=== PATIENT | female | born 1965 | race African-American/Black ===

== ENCOUNTER → 2017-02-25 | Outpatient (CLI) | payer OTHER ==
[2017-02-28 21:07] LABS: AMITRIPTYLINE SERUM 109 ng/mL (Not Estab.); NORTRIPTYLINE SERUM 2 175 ng/mL (Not Estab.)
[2017-03-01 07:10] LABS: AMITRIPTYLINE + NORTRIP TOTAL 284 ng/mL (80-200)
== END ==
LOC: LAB 11:26
PROVIDERS: ATTEND Specialist
DX: R51 Headache (principal); Z51.81 Encounter for therapeutic drug level monitoring; Z79.899 Other long term (current) drug therapy
CPT/HCPCS: 36415; G0480; 80335

== ENCOUNTER → 2017-03-04 | Outpatient (CLI) | payer OTHER ==
[2017-03-04 10:01] LABS: HEMOGLOBIN 10.8 g/dL (12.0-15.5); HGB HCT DIFFERENCE -0.6; MEAN CORPUSCULAR HEMOGLOBIN 28.2 pg (27.0-33.4); MEAN CORPUSCULAR HGB CONC 32.7 g/dL (32.0-36.0); MEAN CORPUSCULAR VOLUME 86 fl (80-97); RED BLOOD COUNT 3.82 10^6/uL (3.72-5.28); WHITE BLOOD COUNT 7.4 10^3/uL (4.0-10.5)
[2017-03-04 10:20] LABS: ALANINE AMINOTRANSFERASE 30 U/L (9-52); ALBUMIN 4.4 g/dL (3.5-5.0); ALKALINE PHOSPHATASE 110 U/L (38-126); ANION GAP 9 (5-19); ASPARTATE AMINO TRANSFERASE 24 U/L (14-36); BILIRUBIN,DIRECT 0.4 mg/dL (0.0-0.4); BILIRUBIN,TOTAL 0.4 mg/dL (0.2-1.3); BLOOD UREA NITROGEN 24 mg/dL (7-20); CALCIUM 10.2 mg/dL (8.4-10.2); CARBON DIOXIDE 24 mmol/L (22-30); CHLORIDE 103 mmol/L (98-107); CREATININE RESULT 1.46 mg/dL (0.52-1.25); GLUCOSE 69 mg/dL (75-110); POTASSIUM 4.6 mmol/L (3.6-5.0); SODIUM 135.7 mmol/L (137-145); TOTAL PROTEIN 7.4 g/dL (6.3-8.2)
== END ==
LOC: LAB 09:42
PROVIDERS: ATTEND Internal Medicine Gastroenterology
DX: R11.2 Nausea with vomiting, unspecified (principal); K44.9 Diaphragmatic hernia without obstruction or gangrene
CPT/HCPCS: 36415; 80048; 80076; 85027

== ENCOUNTER → 2017-03-15 | Outpatient (CLI) | payer OTHER ==
--- NOTE | 2017-03-15 15:47 | RADIOLOGY REPORT (SQ) ---
EXAM DESCRIPTION: NM GASTRIC EMPTYING STUDY COMPLETED DATE/TIME: 03/15/2017 2:07 pm REASON FOR STUDY: N/V (R11.2), TYPE II DIABETES (E11.9) R11.2 NAUSEA WITH VOMITING, UNSPECIFIED COMPARISON: None. RADIONUCLIDE AND DOSE: 2 millicuries Tc-99m Sulfur Colloid. The route of agent administration: Oral. TECHNIQUE: Serial images acquired to 240 minutes with each image recorded over a 2-minute time frame . Image intensity values plotted with respect to time with linear regression algorithm. LIMITATIONS: None. FINDINGS: CALCULATED VALUE: 88.2 %. NORMAL VALUE: Greater than 90 % emptying at 240 minutes. OTHER: No other significant finding. IMPRESSION: Slightly delayed gastric emptying with 88.2% emptying where 90% is considered normal. TECHNICAL DOCUMENTATION: JOB ID: [id number] [employer]- All Rights Reserved
== END ==
LOC: RAD 07:38
PROVIDERS: ATTEND Internal Medicine Gastroenterology
DX: R11.2 Nausea with vomiting, unspecified (principal); E11.9 Type 2 diabetes mellitus without complications
CPT/HCPCS: 78264; A9541

== ENCOUNTER 2017-04-05 12:47 | Observation (INO) | payer OTHER ==
[2017-04-05 14:21] LABS: APPEARANCE,URINE SLIGHTLY-CLOUDY; BILIRUBIN,URINE NEGATIVE (NEGATIVE); GLUCOSE, URINE NEGATIVE (NEGATIVE); KETONES,URINE 20 mg/dL (NEGATIVE); LEUKOCYTE ESTERASE,URINE LARGE (NEGATIVE); NITRITE,URINE NEGATIVE (NEGATIVE); PROTEIN,URINE NEGATIVE (NEGATIVE); URINE SPECIFIC GRAVITY 1.018; UROBILINOGEN,URINE NEGATIVE mg/dL (<2.0)
[2017-04-05] MEDS ORDERED: DEXTROSE 50%-WATER SYRINGE 25 GM/50 ML DOSE IV PRN (14:23)
[2017-04-05] MEDS ORDERED: DEXTROSE 40% GEL 15 GM TUBE X 2 PO PRN (14:23)
[2017-04-05] MEDS ORDERED: INSULIN LISPRO 100 UNIT/ML 3 ML VIAL SUBCUT PRN (14:23)
[2017-04-05] MEDS ORDERED: LORAZEPAM INJ 2 MG/1 ML VIAL IV PRN (14:23)
[2017-04-05] MEDS ORDERED: DEXTROSE 50%-WATER SYRINGE 12.5 GM/25 ML DOSE IV PRN (14:23)
[2017-04-05] MEDS ORDERED: DEXTROSE 40% GEL 15 GM TUBE PO PRN (14:23)
[2017-04-05] MEDS ORDERED: GLUCAGON,HUMAN RECOMB 1 MG INJ IM PRN (14:23)
--- NOTE | 2017-04-05 15:00 | RADIOLOGY REPORT (SQ) ---
EXAM DESCRIPTION: CHEST SINGLE VIEW COMPLETED DATE/TIME: 04/05/2017 2:23 pm REASON FOR STUDY: Paralysis COMPARISON: 01/16/2015. EXAM PARAMETERS: NUMBER OF VIEWS: One view. TECHNIQUE: Single frontal radiographic view of the chest acquired. RADIATION DOSE: NA LIMITATIONS: None. FINDINGS: LUNGS AND PLEURA: No opacities, masses or pneumothorax. No pleural effusion. MEDIASTINUM AND HILAR STRUCTURES: No masses. Contour normal. HEART AND VASCULAR STRUCTURES: Heart normal in size. Normal vasculature. BONES: No acute findings. HARDWARE: None in the chest. OTHER: No other significant finding. IMPRESSION: NO ACUTE RADIOGRAPHIC FINDING IN THE CHEST. TECHNICAL DOCUMENTATION: JOB ID: [id number]
[2017-04-05] MEDS ORDERED: LORAZEPAM INJ 2 MG/1 ML VIAL ONE (15:21)
--- NOTE | 2017-04-05 16:45 | RADIOLOGY REPORT (SQ) ---
EXAM DESCRIPTION: MRI HEAD WITHOUT COMPLETED DATE/TIME: 04/05/2017 4:36 pm REASON FOR STUDY: Paralysis COMPARISON: 01/16/2015. TECHNIQUE: Multiplanar imaging includes non-contrasted T1, T2, FLAIR, and diffusion with ADC map seq uences. Images stored on PACS. LIMITATIONS: None. FINDINGS: ANATOMY: No anomalies. Normal vascular flow voids. Pituitary fossa normal. CSF SPACES: Normal in size and contour. No hemorrhage. CEREBRUM: Sulci and gyri normal in size and contour. Normal white matter signal on FLAIR imaging. No evidence of hemorrhage, mass, or extraaxial fluid collection. POSTERIOR FOSSA: No signal alteration. No hemorrhage. No edema, masses or mass effect. Internal keny tory canals, cerebello-pontine angles, mastoids normal. DIFFUSION IMAGING: Negative for acute or sub-acute infarction. ORBITS: No masses. Globes normal. PARANASAL SINUSES: Mucous membrane thickening in the in the left ethmoid sinus. OTHER: No other significant finding. IMPRESSION: NORMAL MRI OF THE BRAIN WITHOUT INTRAVENOUS GADOLINIUM CONTRAST. EVIDENCE OF ACUTE STROKE: NO. TECHNICAL DOCUMENTATION: JOB ID: [id number] [employer]- All Rights Reserved
--- NOTE | 2017-04-05 16:49 | RADIOLOGY REPORT (SQ) ---
EXAM DESCRIPTION: MRI LUMBAR SPINE WITHOUT COMPLETED DATE/TIME: 04/05/2017 4:36 pm REASON FOR STUDY: Paralysis COMPARISON: None. TECHNIQUE: Sagittal and Axial imaging includes T1, T2, STIR and gradient echo sequences. Coronal T2/ HASTE imaging. LIMITATIONS: None. FINDINGS: VISUALIZED UPPER ABDOMEN: Limited evaluation. No acute or suspicious findings suggested. SEGMENTATION: No transitional anatomy. The lowest well-developed disc space is labeled L5-S1. ALIGNMENT: Anatomic. VERTEBRAE: Intact. BONE MARROW: Normal. No marrow replacement or reactive changes. DISC SIGNAL: Mild decreased height and signal. POSTERIOR ELEMENTS: Generally intact. No pars defect evident. HARDWARE: None in the spine. CORD AND CONUS: Normal in size and signal intensity. Conus at the appropriate level. SOFT TISSUES: No aortic aneurysm seen. No bulky retroperitoneal adenopathy or mass. No paraspinal mas s or fluid. L1-L2: No significant spinal stenosis or exit foraminal stenosis. L2-L3: No significant spinal stenosis or exit foraminal stenosis. L3-L4: Minimal diffuse posterior disc bulge. Mild facet arthropathy. No significant spinal stenosis or exit foraminal stenosis. L4-L5: Mild diffuse posterior disc bulge. Mild -moderate facet arthropathy. No significant spinal s tenosis or exit foraminal stenosis. L5-S1: Mild diffuse posterior annular bulge, asymmetric to the left. Borderline left lateral recess stenosis. No significant spinal stenosis or exit foraminal stenosis. LOWER THORACIC: Incompletely imaged. No stenosis seen. SACRUM: Visualized upper sacrum intact. OTHER: No other significant findings. IMPRESSION: MILD CHRONIC DEGENERATIVE CHANGES DESCRIBED. BORDERLINE LEFT LATERAL RECESS STENOSIS AT L5-S1. NO HIGH-GRADE STENOSIS OR IMPINGEMENT. TECHNICAL DOCUMENTATION: JOB ID: [id number] [employer]- All Rights Reserved
[2017-04-05 17:36] LABS: HEMATOCRIT 31.1 % (36.0-47.0); HEMOGLOBIN 10.7 g/dL (12.0-15.5); MEAN CORPUSCULAR HEMOGLOBIN 28.7 pg (27.0-33.4); MEAN CORPUSCULAR HGB CONC 34.5 g/dL (32.0-36.0); MEAN CORPUSCULAR VOLUME 83 fl (80-97); RED BLOOD COUNT 3.74 10^6/uL (3.72-5.28); RED CELL DISTRIBUTION WIDTH 13.5 % (11.5-14.0); WHITE BLOOD COUNT 8.6 10^3/uL (4.0-10.5)
[2017-04-05 17:50] LABS: ALANINE AMINOTRANSFERASE 34 U/L (9-52); ALBUMIN 4.1 g/dL (3.5-5.0); ALKALINE PHOSPHATASE 134 U/L (38-126); ANION GAP 13 (5-19); ASPARTATE AMINO TRANSFERASE 32 U/L (14-36); BILIRUBIN,DIRECT 0.4 mg/dL (0.0-0.4); BILIRUBIN,TOTAL 0.4 mg/dL (0.2-1.3); BLOOD UREA NITROGEN 15 mg/dL (7-20); CALCIUM 9.7 mg/dL (8.4-10.2); CARBON DIOXIDE 21 mmol/L (22-30); CHLORIDE 105 mmol/L (98-107); GLUCOSE 69 mg/dL (75-110); POTASSIUM 3.5 mmol/L (3.6-5.0); SODIUM 139.1 mmol/L (137-145); TOTAL PROTEIN 6.7 g/dL (6.3-8.2)
--- NOTE | 2017-04-05 18:28 | EKG REPORT ---
SEVERITY:- NORMAL ECG - SINUS RHYTHM : Confirmed by: French Acosta MD 05-Apr-2017 18:28:11
[2017-04-05 18:40] LABS: PROTHROMBIN TIME 13.8 SEC (11.4-15.4)
[2017-04-05 18:41] LABS: PARTIAL THROMBOPLASTIN TIME 27.1 SEC (23.5-35.8)
--- NOTE | 2017-04-06 12:57 | PDOC H&P ---
History of Present Illness Admission Date/PCP: 04/05/17 12:47 ARSH WOODWARD MD History of Present Illness: STU CLARK is a 51 year old female,she came to the office because of progressive weakness of the lower extremity for the last 2-3 weeks, she came to the office in a wheelchair. She has fairly progressive symmetric muscle weakness, is started initially with mild difficulty with walking and is now nearly complete paralysis of especially the lower extremity muscles, she also have weakness of the upper extremities she denies any difficulty breathing. MRI of the brain on MRI of the lumbar spine was done MRI of the brain was normal , M of the lumbar spine showed mild diffuse posterior annular bulge at L5-S1 level. There is no history of injury or fall Past Medical History Cardiac Medical History: Reports: Hypertension Endocrine Medical History: Reports: Diabetes Mellitus Type 2, Hypothyroidism Musculoskeltal Medical History: Reports: Arthritis Past Surgical History Past Surgical History: Reports: Cholecystectomy, Hysterectomy Social History Smoking Status: Current Some Day Smoker Cigarettes Packs Per Day: 1 Last Time Smoked: 04/04/2017 Frequency of Alcohol Use: None Hx Recreational Drug Use: No Drugs: None Hx Prescription Drug Abuse: No Family History Family History: Reviewed & Not Pertinent Parental Family History Reviewed: Yes Children Family History Reviewed: Yes Sibling(s) Family History Reviewed.: Yes Medication/Allergy Home Medications: Calcium Carbonate/Vitamin D3 [Os-Timur 500-Vit D3 200 Caplet] 1 tab PO Q8 Fexofenadine HCl [Anaya] 180 mg PO DAILY 04/05/17 Fluticasone Propionate [Flonase Nasal [place] 50 Mcg/[place] 16 gm] 1 spray NAREB Q12 04/05/17 Gabapentin [Neurontin 300 mg Capsule] 300 mg PO Q8 04/05/17 Levothyroxine Sodium [Synthroid 0.05 mg Tablet] 50 mcg PO ACBRKFST 04/05/17 Losartan Potassium [Cozaar 50 mg Tablet] 50 mg PO DAILY 04/05/17 Montelukast Sodium [Singulair 10 mg Tablet] 10 mg PO QPM 04/05/17 Olopatadine HCl [Pataday] 1 drop OU Q12 04/05/17 Ondansetron [Zofran Odt 4 mg Tablet] 4 mg PO Q8HP PRN 04/05/17 Pantoprazole Sodium [Protonix] 40 mg PO DAILY 04/05/17 Pravastatin Sodium [Pravachol] 20 mg PO DAILY 04/05/17 Vit/Iron Fum/Folic AC [ Tablet] 1 tab PO DAILY 04/05/17 Sitagliptin Phos/Metformin HCl [Janumet 50-1,000 mg Tablet] 1 tab PO BID Thiamine HCl [Vitamin B-1] 50 mg PO DAILY 04/05/17 Topiramate [Topamax 100 mg Tablet] 100 mg PO Q12 04/05/17 Albuterol Sulfate [Proair Hfa Inhalation Aerosol 8.5 gm Mdi] 2 puff IH Q4HP PRN 04/06/17 Amitriptyline HCl [Elavil 75 Mg Tablet] 75 mg PO Q12 04/06/17 Butalb/Acetaminophen/Caffeine [Fioricet (50-325-40 mg) Tablet] 1 tab PO Q4HP PRN 04/06/17 Calcium Carbonate [Tums Chewable 500 mg Tab.chew] 500 mg PO DAILYP PRN 04/06/17 Chlordiazepoxide HCl [Librium 10 mg Capsule] 10 mg PO Q12 04/06/17 Chlorhexidine Gluconate [Betasept Liquid] 1 applic TP DAILY PRN 04/06/17 Cyclobenzaprine HCl [Flexeril 10 mg Tablet] 10 mg PO Q8HP PRN 04/06/17 Ergocalciferol (Vitamin D2) [Drisdol 50,000 Unit (1.25MG) Capsule] 50,000 unit PO VICENTE@1000 04/06/17 Lactulose [Constulose 10 gm/15 mL Oral Solution] 30 ml PO BID 04/06/17 Allergies/Adverse Reactions: morphine [Morphine] Adverse Reaction (Verified 01/16/15 20:25) Confusion Review of Systems Constitutional: ABSENT: chills, fever(s), headache(s), weight gain, weight loss Eyes: ABSENT: visual disturbances Ears: ABSENT: hearing changes Cardiovascular: ABSENT: chest pain, dyspnea on exertion, edema, orthropnea, palpitations Respiratory: ABSENT: cough, hemoptysis Gastrointestinal: ABSENT: abdominal pain, constipation, diarrhea, hematemesis, hematochezia, nausea, vomiting Genitourinary: ABSENT: dysuria, hematuria Integumentary: ABSENT: rash, wounds Neurological: PRESENT: as per HPI, weakness, other - She has progressive weakness of flexibility Endocrine: ABSENT: cold intolerance, heat intolerance, menstrual abnormalities, polydipsia, polyuria Hematologic/Lymphatic: ABSENT: easy bleeding, easy bruising, lymphadenopathy Physical Exam Vital Signs: Temp Pulse Resp BP Pulse Ox 98.5 F 76 18 137/81 H 100 04/06/17 11:20 04/06/17 11:20 04/06/17 11:20 04/06/17 11:20 04/06/17 11:20 Intake & Output 04/05/17 04/06/17 04/07/17 06:59 06:59 06:59 Intake Total 2605 Balance 2605 Weight 68.7 kg General appearance: PRESENT: no acute distress, well-developed, well-nourished Head exam: PRESENT: atraumatic, normocephalic Eye exam: PRESENT: conjunctiva pink, EOMI, PERRLA Ear exam: PRESENT: normal external ear exam Respiratory exam: PRESENT: clear to auscultation katherine Cardiovascular exam: PRESENT: RRR, +S1, +S2 Pulses: PRESENT: normal dorsalis pedis pul, +2 pedal pulses bilateral Vascular exam: PRESENT: normal capillary refill GI/Abdominal exam: PRESENT: normal bowel sounds, soft Rectal exam: PRESENT: deferred Neurological exam: PRESENT: alert, oriented to time, oriented to situation, other - She has abnormal reflexes Psychiatric exam: PRESENT: appropriate affect, normal mood. ABSENT: homicidal ideation, suicidal ideation Skin exam: PRESENT: dry, intact, warm. ABSENT: cyanosis, rash Results Laboratory Results: 04/05/17 17:22 04/05/17 17:22 04/05/17 04/05/17 04/05/17 13:35 17:22 17:22 WBC 8.6 RBC 3.74 Hgb 10.7 L Hct 31.1 L MCV 83 MCH 28.7 MCHC 34.5 RDW 13.5 Plt Count 280 Sodium 139.1 Potassium 3.5 L Chloride 105 Carbon Dioxide 21 L Anion Gap 13 BUN 15 Creatinine 0.90 Est GFR ( Amer) > 60 Est GFR (Non-Af Amer) > 60 Glucose 69 L Calcium 9.7 Total Bilirubin 0.4 AST 32 ALT 34 Alkaline Phosphatase 134 H Total Protein 6.7 Albumin 4.1 Urine Color YELLOW Urine Appearance SLIGHTLY-CLOUDY Urine pH 5.0 Ur Specific [place] 1.018 Urine Protein NEGATIVE Urine Glucose (UA) NEGATIVE Urine Ketones 20 H Urine Blood NEGATIVE Urine Nitrite NEGATIVE Ur Leukocyte Esterase LARGE H Urine WBC (Auto) 113 Urine RBC (Auto) 5 Impressions: Chest X-Ray 04/05/17 00:00 IMPRESSION: NO ACUTE RADIOGRAPHIC FINDING IN THE CHEST. Head MRI 04/05/17 13:28 IMPRESSION: NORMAL MRI OF THE BRAIN WITHOUT INTRAVENOUS GADOLINIUM CONTRAST. EVIDENCE OF ACUTE STROKE: NO. Lumbar Spine MRI 04/05/17 13:45 IMPRESSION: MILD CHRONIC DEGENERATIVE CHANGES DESCRIBED. BORDERLINE LEFT LATERAL RECESS STENOSIS AT L5-S1. NO HIGH-GRADE STENOSIS OR IMPINGEMENT. Assessment & Plan - Diagnosis (1) Guillain Lassiter syndrome Is this a current diagnosis for this admission?: Yes Plan: Lumbar puncture was done the white blood cell was 0 the protein is elevated, I suspect Guillain-Lassiter syndrome in this patient (2) Type 2 diabetes mellitus Qualifiers: Diabetes mellitus complication status: with unspecified complications Diabetes mellitus correction insulin use: without termite helper use Qualified Code( s): E11.8 - Type 2 diabetes mellitus with unspecified complications Is this a current diagnosis for this admission?: Yes
--- NOTE | 2017-04-06 15:22 | RADIOLOGY REPORT (SQ) ---
EXAM DESCRIPTION: LUMBAR PUNCTURE; FLUORO/NEEDLE PLACEMENT/SPINE COMPLETED DATE/TIME: 04/06/2017 3:10 pm REASON FOR STUDY: suspect guillan barre syndrome ; SUSPECTED GUILLAN BARRE SYNDROME COMPARISON: MRI lumbar spine 04/05/2017 MRI brain 04/05/2017 FLUOROSCOPY TIME: 18 seconds 1 digital radiographic images saved to PACS. TECHNIQUE: Fluoroscopic guided lumbar puncture. LIMITATIONS: None. PROCEDURE: After written consent and assessment were obtained, the patient was brought into the fluo roscopy room and placed prone on the table. The patient's lower back was prepped in a sterile fashio n and an entry site was selected under live fluoroscopic guidance. The entry site was anesthetized wi th 3 mL of 1% lidocaine. A 22 gauge needle was advanced through the skin and into the thecal sac at t he right paracentral L4-5 level. After approximately 7 ml was drained, the needle was removed and a sterile bandage was placed of the site. Specimens were sent to the lab for testing. A fluoroscopic spot image was saved to PACS confirming level access. FINDINGS: Clear CSF, normal opening pressure 14 cm of water IMPRESSION: Lumbar puncture under fluoroscopy. No immediate complication. COMMENT: Patient medication list reviewed: Yes- Quality ID# [id number]:Eligible professional attests to doc umenting in the medical record they obtained, updated, or reviewed the patient's current medications. . Quality ID 145: Final reports for procedures using fluoroscopy that document radiation exposure geovany ananth, or exposure time and number of fluorographic images (if radiation exposure indices are not avail able) TECHNICAL DOCUMENTATION: JOB ID: [id number] [employer]- All Rights Reserved
[2017-04-06 15:52] LABS: GLUCOSE,CSF 56 mg/dL (40-70)
[2017-04-06 16:14] LABS: APPEARANCE ALL TUBES CLEAR
[2017-04-06 16:15] LABS: RBC DILUENT USED NONE USED; RBC DILUTION FACTOR 1; RBC SIDE 1 0; RBC SIDE 2 0; TOTAL RBC SQUARES COUNTED 225
[2017-04-06 16:16] LABS: WHITE BLOOD CELL,CSF 0 /uL (0-5)
[2017-04-06 16:19] LABS: CSF CULTURED REQUIRED CSF CULTURE ORDERED (CSFY); H. INFLUENZAE TYPE B AG NEGATIVE (NEGATIVE); S. PNEUMONIAE AG NEGATIVE (NEGATIVE); STREP. GROUP B AG NEGATIVE (NEGATIVE)
[2017-04-06 16:42] LABS: ALANINE AMINOTRANSFERASE 36 U/L (9-52); ALBUMIN 3.8 g/dL (3.5-5.0); ALKALINE PHOSPHATASE 123 U/L (38-126); ANION GAP 8 (5-19); ASPARTATE AMINO TRANSFERASE 85 U/L (14-36); BILIRUBIN,DIRECT 0.3 mg/dL (0.0-0.4); BILIRUBIN,TOTAL 0.3 mg/dL (0.2-1.3); BLOOD UREA NITROGEN 11 mg/dL (7-20); CALCIUM 9.3 mg/dL (8.4-10.2); CARBON DIOXIDE 24 mmol/L (22-30); CHLORIDE 109 mmol/L (98-107); CREATININE RESULT 0.84 mg/dL (0.52-1.25); GLUCOSE 124 mg/dL (75-110); SODIUM 141.4 mmol/L (137-145); TOTAL PROTEIN 6.6 g/dL (6.3-8.2)
[2017-04-06] MEDS ORDERED: BUTALB/ACETAMINOPHEN/CAFFEINE 1 TAB EACH PO PRN (16:47)
[2017-04-06] MEDS ORDERED: ONDANSETRON 4 MG TAB.RAPDIS PO PRN (16:47)
[2017-04-06] MEDS ORDERED: CALCIUM CARBONATE 500 MG TAB.CHEW PO PRN (16:47)
[2017-04-06] MEDS ORDERED: (PENDING PHARMACY ID) (Prenatal Vit/Iron Fum/Folic Ac [Prenatal Tablet] 1 TAB) PO SCH (17:00)
[2017-04-06] MEDS ORDERED: LEVOTHYROXINE SODIUM 0.05 MG TABLET PO SCH (17:00)
[2017-04-06] MEDS ORDERED: (PENDING PHARMACY ID) (Thiamine Hcl [Vitamin B-1] 50 MG) PO SCH (17:00)
--- NOTE | 2017-04-06 17:01 | PDOC TRANSFER SUMMARY ---
General Admission Date/PCP: 04/05/17 12:47 ARSH WOODWARD MD Admission Date: 04/05/17 Transfer Date: 04/06/17 Accepting Facility: [facility] Resuscitation Status: Full Code - Transfer Diagnosis (1) Guillain Lassiter syndrome Is this a current diagnosis for this admission?: Yes (2) Type 2 diabetes mellitus Is this a current diagnosis for this admission?: Yes - Transfer Medications Home Medications: Calcium Carbonate/Vitamin D3 [Os-Timur 500-Vit D3 200 Caplet] 1 tab PO Q8 Fexofenadine HCl [Anaya] 180 mg PO DAILY 04/05/17 Fluticasone Propionate [Flonase Nasal [place] 50 Mcg/[place] 16 gm] 1 spray NAREB Q12 04/05/17 Gabapentin [Neurontin 300 mg Capsule] 300 mg PO Q8 04/05/17 Levothyroxine Sodium [Synthroid 0.05 mg Tablet] 50 mcg PO ACBRKFST 04/05/17 Losartan Potassium [Cozaar 50 mg Tablet] 50 mg PO DAILY 04/05/17 Montelukast Sodium [Singulair 10 mg Tablet] 10 mg PO QPM 04/05/17 Olopatadine HCl [Pataday] 1 drop OU Q12 04/05/17 Ondansetron [Zofran Odt 4 mg Tablet] 4 mg PO Q8HP PRN 04/05/17 Pantoprazole Sodium [Protonix] 40 mg PO DAILY 04/05/17 Pravastatin Sodium [Pravachol] 20 mg PO DAILY 04/05/17 Vit/Iron Fum/Folic AC [ Tablet] 1 tab PO DAILY 04/05/17 Sitagliptin Phos/Metformin HCl [Janumet 50-1,000 mg Tablet] 1 tab PO BID Thiamine HCl [Vitamin B-1] 50 mg PO DAILY 04/05/17 Topiramate [Topamax 100 mg Tablet] 100 mg PO Q12 04/05/17 Albuterol Sulfate [Proair Hfa Inhalation Aerosol 8.5 gm Mdi] 2 puff IH Q4HP PRN 04/06/17 Amitriptyline HCl [Elavil 75 Mg Tablet] 75 mg PO Q12 04/06/17 Butalb/Acetaminophen/Caffeine [Fioricet (50-325-40 mg) Tablet] 1 tab PO Q4HP PRN 04/06/17 Calcium Carbonate [Tums Chewable 500 mg Tab.chew] 500 mg PO DAILYP PRN 04/06/17 Chlordiazepoxide HCl [Librium 10 mg Capsule] 10 mg PO Q12 04/06/17 Chlorhexidine Gluconate [Betasept Liquid] 1 applic TP DAILY PRN 04/06/17 Cyclobenzaprine HCl [Flexeril 10 mg Tablet] 10 mg PO Q8HP PRN 04/06/17 Ergocalciferol (Vitamin D2) [Drisdol 50,000 Unit (1.25MG) Capsule] 50,000 unit PO VICENTE@1000 04/06/17 Lactulose [Constulose 10 gm/15 mL Oral Solution] 30 ml PO BID 04/06/17 Transfer Medications: Current Medications Acetaminophen/Butalbital/Caffeine (Fioricet (50-325-40 Mg) Tablet) 1 tab PO Q4HP PRN Stop: 05/06/17 16:46 Albuterol (Proair Hfa Inhalation Aerosol 8.5 Gm Mdi) 2 puff IH Q4HP PRN Stop: 05/06/17 16:46 Calcium Carbonate (Tums Chewable 500 Mg Tab.Chew) 500 mg PO DAILYP PRN Stop: 05/06/17 16:46 Cyclobenzaprine HCl (Flexeril 10 Mg Tablet) 10 mg PO Q8HP PRN Stop: 05/06/17 16:46 Dextrose (Dextrose Inj 50% Syringe (25 Gm/50 Ml)) 12.5 gm IV PRN PRN; Protocol PRN Reason: FOR BG 50-69 IN ALERT PATIENT Stop: 05/05/17 14:22 Dextrose (Dextrose Inj 50% Syringe (25 Gm/50 Ml)) 25 gm IV PRN PRN PRN Reason: Protocol Stop: 05/05/17 14:22 Gabapentin (Neurontin 300 Mg Capsule) 300 mg PO Q8 OLIVIA Stop: 05/06/17 16:59 Glucagon (Glucagen Inj 1 Mg Vial) 1 mg IM PRN PRN; Protocol PRN Reason: EVALUATE FOR BG < 70 Stop: 05/05/17 14:22 Glucose (Glutose 40% Gel 15 Gm Tube) 15 gm PO PRN PRN; Protocol PRN Reason: FOR BG 50-69 IN ALERT PATIENT Stop: 05/05/17 14:22 Glucose (Glutose 40% Gel 15 Gm Tube) 30 gm PO PRN PRN; Protocol PRN Reason: FOR BG < 50 IN ALERT PATIENT Stop: 05/05/17 14:22 Insulin Human Lispro (Humalog Insulin 100 Unit/1 Ml 3 Ml Vial) 0 - 12 unit SUBCUT ACHSP PRN PRN Reason: Protocol Stop: 05/05/17 14:22 Lansoprazole (Prevacid 30 Mg Odt Tablet) 30 mg PO QPM OLIVIA Stop: 05/06/17 17:59 Levothyroxine Sodium (Synthroid 0.05 Mg Tablet) 0.05 mg PO ACBRKFST OLIVIA Stop: 05/06/17 16:59 Losartan Potassium (Cozaar 50 Mg Tablet) 50 mg PO DAILY OLIVIA Stop: 05/06/17 16:59 Montelukast Sodium (Singulair 10 Mg Tablet) 10 mg PO QPM OLIVIA Stop: 05/06/17 17:59 Ondansetron HCl (Zofran Odt 4 Mg Tablet) 4 mg PO Q8HP PRN PRN Reason: FOR NAUSEA/VOMITING Stop: 05/06/17 16:46 Patient Own Medication (Olopatadine Hcl [Pataday]) 1 drop OU .Q12 OLIVIA Stop: 05/06/17 16:59 Patient Own Medication (Pravastatin Sodium [Pravachol]) 20 mg PO DAILY OLIVIA Stop: 05/06/17 16:59 Patient Own Medication ( Vit/Iron Fum/Folic Ac [ Tablet]) 1 tab PO DAILY OLIVIA Stop: 05/06/17 16:59 Patient Own Medication (Sitagliptin Phos/Metformin Hcl [Janumet 50-1,000 Mg Tablet]) 1 tab PO BID OLIVIA Stop: 05/06/17 17:59 Patient Own Medication (Thiamine Hcl [Vitamin B-1]) 50 mg PO DAILY OLIVIA Stop: 05/06/17 16:59 Topiramate (Topamax 100 Mg Tablet) 100 mg PO Q12 OLIVIA Stop: 05/06/17 16:59 - Allergies Allergies/Adverse Reactions: morphine [Morphine] Adverse Reaction (Verified 01/16/15 20:25) Confusion Hospital Course Hospital Course: Patient presented to the office with 2-3 week history of progressive weakness of the lower extremities, initially she thought it would go away but it got worse, she came to the office with her sister in a wheelchair, she was unable to ambulate. I admitted her directly from the office into the hospital for evaluation and management of her symptoms. A stat MRI of the brain and lumbar spine was done, the brain MRI was normal, the MRI of the spine showed minimal posterior disc bulging and mild bilateral facet hypertrophy without central or foraminal encroachment. Guillain-Lassiter syndrome was suspected especially because of the progressive nature of extremity weakness, she has no respiratory symptoms, she has mild weakness of the upper extremities. A fluoroscopy guided lumbar puncture was done today, it showed 0 white blood cells, elevated protein this finding is called albuminocytologic dissociation a typical finding in Guillain-Lassiter syndrome, she would need EMG and neurology evaluation. I called [facility] neurology service and they were kind enough to accept patient in transfer Physical Exam Vital Signs: Temp Pulse Resp BP Pulse Ox 98.5 F 76 18 137/81 H 100 04/06/17 11:20 04/06/17 11:20 04/06/17 11:20 04/06/17 11:20 04/06/17 11:20 Intake & Output 04/05/17 04/06/17 04/07/17 06:59 06:59 06:59 Intake Total 2605 Balance 2605 Weight 68.7 kg General appearance: PRESENT: no acute distress Eye exam: PRESENT: PERRLA Respiratory exam: PRESENT: clear to auscultation katherine Cardiovascular exam: PRESENT: +S1, +S2 GI/Abdominal exam: PRESENT: soft Neurological exam: PRESENT: alert Results Laboratory Results: 04/05/17 17:22 04/06/17 15:55 04/05/17 04/05/17 04/06/17 17:22 17:22 14:55 WBC 8.6 RBC 3.74 Hgb 10.7 L Hct 31.1 L MCV 83 MCH 28.7 MCHC 34.5 RDW 13.5 Plt Count 280 Sodium 139.1 Potassium 3.5 L Chloride 105 Carbon Dioxide 21 L Anion Gap 13 BUN 15 Creatinine 0.90 Est GFR ( Amer) > 60 Est GFR (Non-Af Amer) > 60 Glucose 69 L Calcium 9.7 Total Bilirubin 0.4 AST 32 ALT 34 Alkaline Phosphatase 134 H Total Protein 6.7 Albumin 4.1 Fluid Tube Number 3 CSF Volume 7.0 CSF Appearance CLEAR CSF Color COLORLESS CSF WBC 0 CSF RBC 0 CSF Comment CSF Glucose CSF Total Protein 04/06/17 04/06/17 04/06/17 14:55 14:55 15:55 WBC RBC Hgb Hct MCV MCH MCHC RDW Plt Count Sodium 141.4 Potassium 4.0 Chloride 109 H Carbon Dioxide 24 Anion Gap 8 BUN 11 Creatinine 0.84 Est GFR ( Amer) > 60 Est GFR (Non-Af Amer) > 60 Glucose 124 H Calcium 9.3 Total Bilirubin 0.3 AST 85 H ALT 36 Alkaline Phosphatase 123 Total Protein 6.6 Albumin 3.8 Fluid Tube Number CSF Volume CSF Appearance CSF Color CSF WBC CSF RBC CSF Comment CSF CULTURE ORDERED CSF Glucose 56 CSF Total Protein 137 H Impressions: Chest X-Ray 04/05/17 00:00 IMPRESSION: NO ACUTE RADIOGRAPHIC FINDING IN THE CHEST. Head MRI 04/05/17 13:28 IMPRESSION: NORMAL MRI OF THE BRAIN WITHOUT INTRAVENOUS GADOLINIUM CONTRAST. EVIDENCE OF ACUTE STROKE: NO. Lumbar Spine MRI 04/05/17 13:45 IMPRESSION: MILD CHRONIC DEGENERATIVE CHANGES DESCRIBED. BORDERLINE LEFT LATERAL RECESS STENOSIS AT L5-S1. NO HIGH-GRADE STENOSIS OR IMPINGEMENT. Guidance Fluoroscopy 04/06/17 00:00 IMPRESSION: Lumbar puncture under fluoroscopy. No immediate complication. Lumbar Puncture 04/06/17 00:00
[2017-04-06] MEDS ORDERED: LEVOTHYROXINE SODIUM 0.05 MG TABLET PO ONE ×2 (18:00→22:00)
[2017-04-06] MEDS ORDERED: (PENDING PHARMACY ID) (Sitagliptin Phos/Metformin Hcl [Janumet 50-1,000 Mg Tablet] 1 TAB) PO SCH (18:00)
[2017-04-06 18:22] VITALS: BP 133/81
[2017-04-06] MEDS ORDERED: CYCLOBENZAPRINE HCL 10 MG TABLET PO PRN (18:46)
[2017-04-06] MEDS ORDERED: METFORMIN HCL 500 MG TABLET PO ONE (19:00)
[2017-04-06] MEDS ORDERED: SITAGLIPTIN PHOSPHATE 50 MG TABLET PO ONE (19:00)
[2017-04-06] MEDS ORDERED: ALBUTEROL SULFATE HFA (90 MCG/PUFF) 200 PUFF/8.5 GM MDI IH PRN (20:00)
[2017-04-06] MEDS ORDERED: MONTELUKAST SODIUM 10 MG TABLET PO SCH (20:00)
[2017-04-06] MEDS ORDERED: TOPIRAMATE 100 MG TABLET PO SCH (22:00)
[2017-04-06] MEDS ORDERED: GABAPENTIN 300 MG CAPSULE PO SCH (22:00)
[2017-04-06] MEDS ORDERED: LANSOPRAZOLE 30 MG TAB.RAP.DR PO SCH (22:00)
[2017-04-06] MEDS ORDERED: THIAMINE HCL 100 MG TABLET PO SCH (22:00)
[2017-04-06] MEDS ORDERED: LOSARTAN POTASSIUM 50 MG TABLET PO SCH (22:00)
[2017-04-07] MEDS ORDERED: LEVOTHYROXINE SODIUM 0.05 MG TABLET PO SCH (08:00)
[2017-04-07] MEDS ORDERED: SITAGLIPTIN PHOSPHATE 50 MG TABLET PO SCH (10:00)
[2017-04-07] MEDS ORDERED: METFORMIN HCL 500 MG TABLET PO SCH (10:00)
[2017-04-07] MEDS ORDERED: PRENATAL VITAMIN W-O CA NO5/FE FUMARATE/FA CAPSULE PO SCH (10:00)
[2017-04-12 16:40] LABS: ALPHA-2-GLOBULIN 5.8 % (3.0-12.6); CSF PE BETA GLOBULIN 13.8 % (7.3-17.9); TOTAL PROTEIN CSF PE 102.4 mg/dL (0.0-44.0)
[2017-04-13 07:21] LABS: CSF PE GAMMA GLOBULIN 7.8 % (3.0-13.0); PROT ELEC MSPIKE Not Observed % (Not Observed)
== END 2017-04-06 22:30 | disposition short-term general hospital (02) ==
LOC: 3W 12:47
PROVIDERS: ADMIT Internal Medicine; ATTEND Internal Medicine
PROC: 009U3ZX Drainage of Spinal Canal, Percutaneous Approach, Diagnostic (ICD-10-PCS; principal; 2017-04-06)
DX: G61.0 Guillain-Barre syndrome (principal); E11.41 Type 2 diabetes mellitus with diabetic mononeuropathy; E11.42 Type 2 diabetes mellitus with diabetic polyneuropathy; M51.36 Other intervertebral disc degeneration, lumbar region; M19.90 Unspecified osteoarthritis, unspecified site; I10 Essential (primary) hypertension; E03.9 Hypothyroidism, unspecified; F17.210 Nicotine dependence, cigarettes, uncomplicated; Z79.899 Other long term (current) drug therapy; Z90.49 Acquired absence of other specified parts of digestive tract; Z82.3 Family history of stroke; Z79.84 Long term (current) use of oral hypoglycemic drugs
CPT/HCPCS: 36415 ×2; 87070; 87205; 87206; 87116; 87210; 86403 ×6; 82962 ×2; 83916 ×2; 85027; 85610; 85730; 89050; 82945; 84157 ×2; 80076; 80048; 80053; 81001; 83036; 87015; 84166; 70551; 72148; 71010; 77003; 62270; 93005; 93010; G0378 ×2; G0379; J1815; J2060; J3490

== ENCOUNTER 2017-04-13 01:47 | Inpatient (IN) | payer OTHER ==
[2017-04-13 05:05] LABS: HEMATOCRIT 28.4 % (36.0-47.0); HEMOGLOBIN 9.5 g/dL (12.0-15.5); HGB HCT DIFFERENCE 0.1; MEAN CORPUSCULAR HEMOGLOBIN 28.4 pg (27.0-33.4); MEAN CORPUSCULAR HGB CONC 33.5 g/dL (32.0-36.0); MEAN CORPUSCULAR VOLUME 85 fl (80-97); RED BLOOD COUNT 3.35 10^6/uL (3.72-5.28); WHITE BLOOD COUNT 7.5 10^3/uL (4.0-10.5)
[2017-04-13 05:22] LABS: ALANINE AMINOTRANSFERASE 123 U/L (9-52); ALBUMIN 3.3 g/dL (3.5-5.0); ALKALINE PHOSPHATASE 130 U/L (38-126); ANION GAP 5 (5-19); ASPARTATE AMINO TRANSFERASE 60 U/L (14-36); BILIRUBIN,DIRECT 0.2 mg/dL (0.0-0.4); BILIRUBIN,TOTAL 0.2 mg/dL (0.2-1.3); BLOOD UREA NITROGEN 16 mg/dL (7-20); CALCIUM 9.3 mg/dL (8.4-10.2); CARBON DIOXIDE 25 mmol/L (22-30); CHLORIDE 110 mmol/L (98-107); CREATININE RESULT 0.86 mg/dL (0.52-1.25); GLUCOSE 153 mg/dL (75-110); POTASSIUM 4.2 mmol/L (3.6-5.0); SODIUM 140.1 mmol/L (137-145); TOTAL PROTEIN 5.7 g/dL (6.3-8.2)
[2017-04-13] MEDS ORDERED: ALBUTEROL SULFATE HFA (90 MCG/PUFF) 200 PUFF/8.5 GM MDI IH PRN (11:11)
[2017-04-13] MEDS: GABAPENTIN 300 MG CAPSULE PO SCH ×2 (13:28→21:38)
--- NOTE | 2017-04-13 14:42 | PDOC H&P ---
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 The diffuse weakness could not be explained no etiology was found she also had MRI of the cervical spine intraoperatively, before she was discharged she had MRI of the brain and lumbar spine. EMG/NCS showed no evidence of large fiber polyneuropathy or myopathy. She was transferred back from [facility] this morning to this hospital. Past Medical History Cardiac Medical History: Reports: Hypertension Endocrine Medical History: Reports: Diabetes Mellitus Type 2, Hypothyroidism Musculoskeltal Medical History: Reports: Arthritis Psychiatric Medical History: Reports: Depression Past Surgical History Past Surgical History: Reports: Cholecystectomy, Hysterectomy Social History Smoking Status: Current Every Day Smoker Frequency of Alcohol Use: None Hx Recreational Drug Use: No Drugs: None Hx Prescription Drug Abuse: No Family History Family History: Reviewed & Not Pertinent Parental Family History Reviewed: Yes Children Family History Reviewed: Yes Sibling(s) Family History Reviewed.: Yes Medication/Allergy Home Medications: Albuterol Sulfate [Proair Hfa Inhalation Aerosol 8.5 gm Mdi] 1 puff IH Q4HP PRN 04/13/17 Amitriptyline HCl [Elavil 75 Mg Tablet] 75 mg PO QHS 04/13/17 Butalb/Acetaminophen/Caffeine [Fioricet (50-325-40 mg) Tablet] 1 tab PO Q4HP PRN 04/13/17 Calcium Carbonate/Vitamin D3 [Calcium 500 + Vit D Caplet] 1 each PO DAILY Cyclobenzaprine HCl [Flexeril 10 mg Tablet] 10 mg PO Q8HP PRN 04/13/17 Ergocalciferol (Vitamin D2) [Vitamin D2] 50,000 unit PO VICENTE@1000 04/13/17 Fexofenadine HCl [Anaya] 180 mg PO DAILY 04/13/17 Fluticasone Propionate [Flonase Nasal Montchanin 50 Mcg/Montchanin 16 gm] 1 spray NASL DAILY 04/13/17 Gabapentin [Neurontin 300 mg Capsule] 300 mg PO Q8 04/13/17 Lactulose [Constulose 10 gm/15 mL Oral Solution] 30 ml PO BID 04/13/17 Levothyroxine Sodium [Synthroid] 50 mcg PO DAILY@0600 04/13/17 Losartan Potassium [Cozaar] 50 mg PO DAILY 04/13/17 Montelukast Sodium [Singulair] 10 mg PO QHS 04/13/17 Nicotine [Nicoderm 7 mg/24 Hr Transdermal Patch] 1 patch TD DAILY 04/13/17 Olopatadine HCl [Patanol 0.1% Oph Soln 5 Ml Bottle] 1 drop OU BID 04/13/17 Ondansetron HCl [Zofran 4 mg Tablet] 1 tab PO Q8HP PRN 04/13/17 Pantoprazole Sodium [Protonix] 40 mg PO DAILY 04/13/17 Pravastatin Sodium [Pravachol] 20 mg PO DAILY 04/13/17 Sitagliptin Phos/Metformin HCl [Janumet 50-1,000 Mg Tablet] 1 each PO BID Thiamine HCl [Vitamin B-1] 50 mg PO DAILY 04/13/17 Allergies/Adverse Reactions: morphine [Morphine] Adverse Reaction (Verified 01/16/15 20:25) Confusion Review of Systems Constitutional: PRESENT: weakness Eyes: ABSENT: visual disturbances Ears: ABSENT: hearing changes Cardiovascular: ABSENT: chest pain, dyspnea on exertion, edema, orthropnea, palpitations Respiratory: ABSENT: cough, hemoptysis Gastrointestinal: ABSENT: abdominal pain, constipation, diarrhea, hematemesis, hematochezia, nausea, vomiting Genitourinary: ABSENT: dysuria, hematuria Musculoskeletal: ABSENT: joint swelling Integumentary: ABSENT: rash, wounds Neurological: ABSENT: abnormal gait, abnormal speech, confusion, dizziness, focal weakness, syncope Psychiatric: ABSENT: anxiety, depression, homidical ideation, suicidal ideation Endocrine: ABSENT: cold intolerance, heat intolerance, menstrual abnormalities, polydipsia, polyuria Hematologic/Lymphatic: ABSENT: easy bleeding, easy bruising, lymphadenopathy Physical Exam Vital Signs: Temp Pulse Resp BP Pulse Ox 98.4 F 75 18 119/71 100 04/13/17 12:18 04/13/17 14:00 04/13/17 12:18 04/13/17 12:18 04/13/17 12:18 Intake & Output 04/12/17 04/13/17 04/14/17 06:59 06:59 06:59 Intake Total 280 Balance 280 Weight 67.9 kg General appearance: PRESENT: no acute distress, well-developed, well-nourished Head exam: PRESENT: atraumatic, normocephalic Eye exam: PRESENT: conjunctiva pink, EOMI, PERRLA Ear exam: PRESENT: normal external ear exam Mouth exam: PRESENT: moist, tongue midline Neck exam: PRESENT: full ROM Respiratory exam: PRESENT: clear to auscultation katherine Cardiovascular exam: PRESENT: RRR, +S1, +S2 Pulses: PRESENT: normal dorsalis pedis pul, +2 pedal pulses bilateral Vascular exam: PRESENT: normal capillary refill GI/Abdominal exam: PRESENT: normal bowel sounds, soft Rectal exam: PRESENT: deferred Neurological exam: PRESENT: alert, awake, oriented to person, oriented to place , oriented to time, oriented to situation, reflexes normal, CN II-XII grossly intact, motor sensory deficit - There is no focal weakness Psychiatric exam: PRESENT: appropriate affect, normal mood Skin exam: PRESENT: dry, intact, warm Results Laboratory Results: 04/13/17 04:53 04/13/17 04:53 04/13/17 04/13/17 04:53 04:53 WBC 7.5 RBC 3.35 L Hgb 9.5 L Hct 28.4 L MCV 85 MCH 28.4 MCHC 33.5 RDW 14.0 Plt Count 261 Sodium 140.1 Potassium 4.2 Chloride 110 H Carbon Dioxide 25 Anion Gap 5 BUN 16 Creatinine 0.86 Est GFR ( Amer) > 60 Est GFR (Non-Af Amer) > 60 Glucose 153 H Calcium 9.3 Total Bilirubin 0.2 AST 60 H ALT 123 H Alkaline Phosphatase 130 H Total Protein 5.7 L Albumin 3.3 L Assessment & Plan - Diagnosis (1) Weakness Is this a current diagnosis for this admission?: Yes Plan: The exact etiology of the diffuse weakness is not clear, at this point she will be transfer to the half-way for rehabilitation consultation will be ordered from discharge planning to make arrangements for transfer (2) Elevated liver enzymes Is this a current diagnosis for this admission?: Yes Plan: The liver enzymes are elevated, she has a remote history of alcohol use, she stated that she has not used alcohol in over 10 years (3) Hypothyroid Qualifiers: Hypothyroidism type: unspecified Qualified Code(s): E03.9 - Hypothyroidism , unspecified Is this a current diagnosis for this admission?: Yes (4) Type 2 diabetes mellitus Qualifiers: Diabetes mellitus complication status: with unspecified complications Diabetes mellitus remote computer terminal operator insulin use: without remote computer terminal operator use Qualified Code( s): E11.8 - Type 2 diabetes mellitus with unspecified complications Is this a current diagnosis for this admission?: Yes
[2017-04-13] MEDS ORDERED: DEXTROSE 50%-WATER SYRINGE 25 GM/50 ML DOSE IV PRN (15:43)
[2017-04-13] MEDS ORDERED: DEXTROSE 40% GEL 15 GM TUBE PO PRN (15:43)
[2017-04-13] MEDS ORDERED: DEXTROSE 40% GEL 15 GM TUBE X 2 PO PRN (15:43)
[2017-04-13] MEDS ORDERED: GLUCAGON,HUMAN RECOMB 1 MG INJ IM PRN (15:43)
[2017-04-13] MEDS ORDERED: INSULIN LISPRO 100 UNIT/ML 3 ML VIAL SUBCUT PRN (15:43)
[2017-04-13] MEDS ORDERED: DEXTROSE 50%-WATER SYRINGE 12.5 GM/25 ML DOSE IV PRN (15:43)
[2017-04-13] MEDS: SITAGLIPTIN PHOSPHATE 50 MG TABLET PO SCH (17:11)
[2017-04-13] MEDS: OLOPATADINE HCL 0.1% OPH SOLN 5 ML OU SCH (17:12)
[2017-04-13] MEDS: METFORMIN HCL 500 MG TABLET PO SCH (17:12)
[2017-04-13] MEDS ORDERED: (PENDING PHARMACY ID) (Lactulose [Constulose 10 Gm/15 Ml Oral Solution] 30 ML) PO SCH (18:00)
[2017-04-13] MEDS ORDERED: (PENDING PHARMACY ID) (Sitagliptin Phos/Metformin Hcl [Janumet 50-1,000 Mg Tablet] 1 EACH) PO SCH (18:00)
[2017-04-13] MEDS: BUTALB/ACETAMINOPHEN/CAFFEINE 1 TAB EACH PO PRN (18:58)
[2017-04-13] MEDS: MONTELUKAST SODIUM 10 MG TABLET PO SCH (21:38)
[2017-04-13] MEDS: AMITRIPTYLINE HCL 75 MG TABLET PO SCH (21:38)
[2017-04-13] MEDS: LACTULOSE SYRUP 20 GM/30 ML UDCUP PO SCH (22:07)
[2017-04-14] MEDS: GABAPENTIN 300 MG CAPSULE PO SCH ×3 (05:55→21:00)
[2017-04-14] MEDS ORDERED: LEVOTHYROXINE SODIUM 0.05 MG TABLET PO SCH (06:00)
[2017-04-14] MEDS ORDERED: LANSOPRAZOLE 30 MG TAB.RAP.DR PO SCH (10:00)
[2017-04-14] MEDS ORDERED: (PENDING PHARMACY ID) (Thiamine Hcl [Vitamin B-1] 50 MG) PO SCH (10:00)
[2017-04-14] MEDS ORDERED: (PENDING PHARMACY ID) (Calcium Carbonate/Vitamin D3 [Calcium 500 + Vit D Caplet] 1 EACH) PO SCH (10:00)
[2017-04-14] MEDS: LACTULOSE SYRUP 20 GM/30 ML UDCUP PO SCH ×2 (10:52→20:56)
[2017-04-14] MEDS: LOSARTAN POTASSIUM 50 MG TABLET PO SCH (11:03)
[2017-04-14] MEDS: THIAMINE HCL 100 MG TABLET PO SCH (11:03)
[2017-04-14] MEDS: SITAGLIPTIN PHOSPHATE 50 MG TABLET PO SCH ×2 (11:03→18:47)
[2017-04-14] MEDS: NICOTINE 7 MG/24 HR PATCH.TD24 TD SCH (11:03)
[2017-04-14] MEDS: LORATADINE 10 MG TABLET PO SCH (11:04)
[2017-04-14] MEDS: ATORVASTATIN CALCIUM 10 MG TABLET PO SCH (11:04)
[2017-04-14] MEDS: METFORMIN HCL 500 MG TABLET PO SCH ×2 (11:04→18:47)
[2017-04-14] MEDS: CALCIUM CARBONATE 250 MG/VITAMIN D3 125 UNIT TABLET PO SCH (11:04)
[2017-04-14] MEDS: FLUTICASONE NASAL SPRAY 50 MCG/SPRY 120 SPRAY/16 GM NASL SCH (13:45)
[2017-04-14] MEDS: OLOPATADINE HCL 0.1% OPH SOLN 5 ML OU SCH ×2 (13:46→18:47)
[2017-04-14 18:45] LABS: ALANINE AMINOTRANSFERASE 112 U/L (9-52); ALKALINE PHOSPHATASE 111 U/L (38-126); ANION GAP 11 (5-19); ASPARTATE AMINO TRANSFERASE 49 U/L (14-36); BILIRUBIN,DIRECT 0.2 mg/dL (0.0-0.4); BILIRUBIN,TOTAL 0.2 mg/dL (0.2-1.3); BLOOD UREA NITROGEN 19 mg/dL (7-20); CALCIUM 10.1 mg/dL (8.4-10.2); CARBON DIOXIDE 26 mmol/L (22-30); CHLORIDE 103 mmol/L (98-107); CREATININE RESULT 0.83 mg/dL (0.52-1.25); GLUCOSE 122 mg/dL (75-110); POTASSIUM 4.6 mmol/L (3.6-5.0); SODIUM 139.5 mmol/L (137-145); TOTAL PROTEIN 6.3 g/dL (6.3-8.2)
--- NOTE | 2017-04-14 18:56 | PDOC PROGRESS REPORT ---
Subjective Progress Note for:: 04/14/17 Subjective:: Patient was admitted from [facility] ., She has weakness of the upper extremities and lower extremities the plan is for her to go to a fci for rehabilitation. Discharge planning is working on that she prefers [place] [facility]. Physical Exam Vital Signs: Temp Pulse Resp BP Pulse Ox 98.3 F 81 15 110/49 L 98 04/14/17 15:48 04/14/17 15:48 04/14/17 15:48 04/14/17 15:48 04/14/17 15:48 Intake & Output 04/13/17 04/14/17 04/15/17 06:59 06:59 06:59 Intake Total 280 725 840 Balance 280 725 840 Weight 69.5 kg General appearance: PRESENT: no acute distress, well-developed, well-nourished Head exam: PRESENT: atraumatic, normocephalic Eye exam: PRESENT: conjunctiva pink, EOMI, PERRLA Ear exam: PRESENT: normal external ear exam Mouth exam: PRESENT: moist, tongue midline Neck exam: PRESENT: full ROM Cardiovascular exam: PRESENT: RRR, +S1, +S2 Pulses: PRESENT: normal dorsalis pedis pul, +2 pedal pulses bilateral Vascular exam: PRESENT: normal capillary refill GI/Abdominal exam: PRESENT: normal bowel sounds, soft Rectal exam: PRESENT: deferred Neurological exam: PRESENT: alert, awake, oriented to person, oriented to place , oriented to time, oriented to situation, CN II-XII grossly intact Psychiatric exam: PRESENT: appropriate affect, normal mood Skin exam: PRESENT: dry, intact, warm Results Laboratory Results: 04/13/17 04:53 04/14/17 17:55 04/14/17 17:55 Sodium 139.5 Potassium 4.6 Chloride 103 Carbon Dioxide 26 Anion Gap 11 BUN 19 Creatinine 0.83 Est GFR ( Amer) > 60 Est GFR (Non-Af Amer) > 60 Glucose 122 H Calcium 10.1 Total Bilirubin 0.2 AST 49 H ALT 112 H Alkaline Phosphatase 111 Total Protein 6.3 Albumin 4.0 Assessment & Plan - Diagnosis (1) Weakness Is this a current diagnosis for this admission?: Yes (2) Elevated liver enzymes Is this a current diagnosis for this admission?: Yes (3) Hypothyroid Qualifiers: Hypothyroidism type: unspecified Qualified Code(s): E03.9 - Hypothyroidism , unspecified Is this a current diagnosis for this admission?: Yes (4) Type 2 diabetes mellitus Qualifiers: Diabetes mellitus complication status: with unspecified complications Diabetes mellitus intermediate card tender insulin use: without intermediate card tender use Qualified Code( s): E11.8 - Type 2 diabetes mellitus with unspecified complications Is this a current diagnosis for this admission?: Yes - Plan Summary Plan Summary: She will continue present treatment
[2017-04-14] MEDS: MONTELUKAST SODIUM 10 MG TABLET PO SCH (21:00)
[2017-04-14] MEDS: AMITRIPTYLINE HCL 75 MG TABLET PO SCH (21:00)
[2017-04-14] MEDS: BUTALB/ACETAMINOPHEN/CAFFEINE 1 TAB EACH PO PRN (23:42)
[2017-04-15] MEDS: LEVOTHYROXINE SODIUM 0.05 MG TABLET PO SCH (05:38)
[2017-04-15] MEDS: GABAPENTIN 300 MG CAPSULE PO SCH ×3 (05:38→21:15)
[2017-04-15] MEDS: LANSOPRAZOLE 30 MG TAB.RAP.DR PO SCH (05:43)
[2017-04-15] MEDS: CALCIUM CARBONATE 250 MG/VITAMIN D3 125 UNIT TABLET PO SCH (11:19)
[2017-04-15] MEDS: SITAGLIPTIN PHOSPHATE 50 MG TABLET PO SCH ×2 (11:19→17:11)
[2017-04-15] MEDS: METFORMIN HCL 500 MG TABLET PO SCH ×2 (11:20→17:11)
[2017-04-15] MEDS: ATORVASTATIN CALCIUM 10 MG TABLET PO SCH (11:20)
[2017-04-15] MEDS: LORATADINE 10 MG TABLET PO SCH (11:20)
[2017-04-15] MEDS: NICOTINE 7 MG/24 HR PATCH.TD24 TD SCH (11:22)
[2017-04-15] MEDS: OLOPATADINE HCL 0.1% OPH SOLN 5 ML OU SCH ×2 (11:22→17:11)
[2017-04-15] MEDS: THIAMINE HCL 100 MG TABLET PO SCH (11:22)
[2017-04-15] MEDS: LOSARTAN POTASSIUM 50 MG TABLET PO SCH (11:23)
[2017-04-15] MEDS: FLUTICASONE NASAL SPRAY 50 MCG/SPRY 120 SPRAY/16 GM NASL SCH (11:23)
[2017-04-15] MEDS: LACTULOSE SYRUP 20 GM/30 ML UDCUP PO SCH ×2 (11:23→21:10)
[2017-04-15] MEDS: BUTALB/ACETAMINOPHEN/CAFFEINE 1 TAB EACH PO PRN (11:57)
--- NOTE | 2017-04-15 21:05 | PDOC PROGRESS REPORT ---
Subjective Progress Note for:: 04/15/17 Subjective:: Patient was admitted from [facility] ., She has weakness of the upper extremities and lower extremities the plan is for her to go to a alf for rehabilitation. Discharge planning is working on that she prefers [facility]. Physical Exam Vital Signs: Temp Pulse Resp BP Pulse Ox 98.3 F 69 18 138/83 H 99 04/15/17 19:33 04/15/17 19:33 04/15/17 19:33 04/15/17 19:33 04/15/17 19:33 Intake & Output 04/14/17 04/15/17 04/16/17 06:59 06:59 06:59 Intake Total 725 1350 1213 Output Total 900 1800 Balance 725 450 -587 Weight 69.5 kg General appearance: PRESENT: no acute distress, well-developed, well-nourished Head exam: PRESENT: atraumatic, normocephalic Eye exam: PRESENT: conjunctiva pink, EOMI, PERRLA Ear exam: PRESENT: normal external ear exam Mouth exam: PRESENT: moist, tongue midline Neck exam: PRESENT: full ROM. ABSENT: carotid bruit, JVD, lymphadenopathy, thyromegaly Cardiovascular exam: PRESENT: RRR, +S1, +S2 Pulses: PRESENT: normal dorsalis pedis pul, +2 pedal pulses bilateral Vascular exam: PRESENT: normal capillary refill GI/Abdominal exam: PRESENT: normal bowel sounds, soft Rectal exam: PRESENT: deferred Neurological exam: PRESENT: alert, awake, oriented to person, oriented to place , oriented to time, oriented to situation, CN II-XII grossly intact. ABSENT: motor sensory deficit Psychiatric exam: PRESENT: appropriate affect, normal mood Skin exam: PRESENT: dry, intact, warm Results Laboratory Results: 04/13/17 04:53 04/14/17 17:55 Assessment & Plan - Diagnosis (1) Weakness Is this a current diagnosis for this admission?: Yes (2) Elevated liver enzymes Is this a current diagnosis for this admission?: Yes (3) Hypothyroid Qualifiers: Hypothyroidism type: unspecified Qualified Code(s): E03.9 - Hypothyroidism , unspecified Is this a current diagnosis for this admission?: Yes (4) Type 2 diabetes mellitus Qualifiers: Diabetes mellitus complication status: with unspecified complications Diabetes mellitus [facility] insulin use: without [facility] use Qualified Code( s): E11.8 - Type 2 diabetes mellitus with unspecified complications Is this a current diagnosis for this admission?: Yes
[2017-04-15] MEDS: AMITRIPTYLINE HCL 75 MG TABLET PO SCH (21:15)
[2017-04-15] MEDS: MONTELUKAST SODIUM 10 MG TABLET PO SCH (21:15)
[2017-04-16] MEDS: GABAPENTIN 300 MG CAPSULE PO SCH ×3 (05:31→21:09)
[2017-04-16] MEDS: LANSOPRAZOLE 30 MG TAB.RAP.DR PO SCH (05:31)
[2017-04-16] MEDS: LEVOTHYROXINE SODIUM 0.05 MG TABLET PO SCH (05:31)
[2017-04-16] MEDS: LORATADINE 10 MG TABLET PO SCH (10:41)
[2017-04-16] MEDS: CALCIUM CARBONATE 250 MG/VITAMIN D3 125 UNIT TABLET PO SCH (10:41)
[2017-04-16] MEDS: NICOTINE 7 MG/24 HR PATCH.TD24 TD SCH (10:41)
[2017-04-16] MEDS: SITAGLIPTIN PHOSPHATE 50 MG TABLET PO SCH ×2 (10:41→17:45)
[2017-04-16] MEDS: THIAMINE HCL 100 MG TABLET PO SCH (10:42)
[2017-04-16] MEDS: LOSARTAN POTASSIUM 50 MG TABLET PO SCH (10:42)
[2017-04-16] MEDS: LACTULOSE SYRUP 20 GM/30 ML UDCUP PO SCH ×2 (10:42→21:13)
[2017-04-16] MEDS: METFORMIN HCL 500 MG TABLET PO SCH ×2 (10:42→17:45)
[2017-04-16] MEDS: ATORVASTATIN CALCIUM 10 MG TABLET PO SCH (10:42)
[2017-04-16] MEDS: FLUTICASONE NASAL SPRAY 50 MCG/SPRY 120 SPRAY/16 GM NASL SCH (10:44)
[2017-04-16] MEDS: OLOPATADINE HCL 0.1% OPH SOLN 5 ML OU SCH ×2 (10:45→17:46)
--- NOTE | 2017-04-16 15:15 | PDOC PROGRESS REPORT ---
Subjective Progress Note for:: 04/16/17 Subjective:: Awaiting placement for patient no new complaints Physical Exam Vital Signs: Temp Pulse Resp BP Pulse Ox 98.5 F 93 16 109/73 100 04/16/17 12:01 04/16/17 14:00 04/16/17 12:01 04/16/17 12:01 04/16/17 12:01 Intake & Output 04/15/17 04/16/17 04/17/17 06:59 06:59 06:59 Intake Total 1350 1843 Output Total 900 3900 Balance 450 -2057 General appearance: PRESENT: no acute distress, well-developed, well-nourished Head exam: PRESENT: atraumatic, normocephalic Eye exam: PRESENT: conjunctiva pink, EOMI, PERRLA. ABSENT: scleral icterus Ear exam: PRESENT: normal external ear exam Mouth exam: PRESENT: moist, tongue midline Neck exam: PRESENT: full ROM. ABSENT: carotid bruit, JVD, lymphadenopathy, thyromegaly Cardiovascular exam: PRESENT: RRR. ABSENT: diastolic murmur, rubs, systolic murmur Pulses: PRESENT: normal dorsalis pedis pul, +2 pedal pulses bilateral Vascular exam: PRESENT: normal capillary refill GI/Abdominal exam: PRESENT: normal bowel sounds, soft. ABSENT: distended, guarding, mass, organolmegaly, rebound, tenderness Rectal exam: PRESENT: deferred Neurological exam: PRESENT: alert, awake, oriented to person, oriented to place , oriented to time, oriented to situation, CN II-XII grossly intact. ABSENT: motor sensory deficit Psychiatric exam: PRESENT: appropriate affect, normal mood. ABSENT: homicidal ideation, suicidal ideation Skin exam: PRESENT: dry, intact, warm. ABSENT: cyanosis, rash Results Laboratory Results: 04/13/17 04:53 04/14/17 17:55 Assessment & Plan - Diagnosis (1) Weakness Is this a current diagnosis for this admission?: Yes (2) Elevated liver enzymes Is this a current diagnosis for this admission?: Yes (3) Hypothyroid Qualifiers: Hypothyroidism type: unspecified Qualified Code(s): E03.9 - Hypothyroidism , unspecified Is this a current diagnosis for this admission?: Yes (4) Type 2 diabetes mellitus Qualifiers: Diabetes mellitus complication status: with unspecified complications Diabetes mellitus shelter insulin use: without terminologist use Qualified Code( s): E11.8 - Type 2 diabetes mellitus with unspecified complications Is this a current diagnosis for this admission?: Yes
[2017-04-16] MEDS: AMITRIPTYLINE HCL 75 MG TABLET PO SCH (21:08)
[2017-04-16] MEDS: MONTELUKAST SODIUM 10 MG TABLET PO SCH (21:09)
[2017-04-16] MEDS: BUTALB/ACETAMINOPHEN/CAFFEINE 1 TAB EACH PO PRN (21:11)
[2017-04-17] MEDS: GABAPENTIN 300 MG CAPSULE PO SCH ×3 (06:22→21:32)
[2017-04-17] MEDS: LEVOTHYROXINE SODIUM 0.05 MG TABLET PO SCH (06:22)
[2017-04-17] MEDS: LANSOPRAZOLE 30 MG TAB.RAP.DR PO SCH (06:24)
[2017-04-17] MEDS: FLUTICASONE NASAL SPRAY 50 MCG/SPRY 120 SPRAY/16 GM NASL SCH (09:59)
[2017-04-17] MEDS ORDERED: ERGOCALCIFEROL (VITAMIN D2) 50000 UNIT (1.25 MG) CAPSULE PO SCH (10:00)
[2017-04-17] MEDS: ATORVASTATIN CALCIUM 10 MG TABLET PO SCH (10:00)
[2017-04-17] MEDS: OLOPATADINE HCL 0.1% OPH SOLN 5 ML OU SCH ×2 (10:00→17:23)
[2017-04-17] MEDS: METFORMIN HCL 500 MG TABLET PO SCH ×2 (10:01→17:23)
[2017-04-17] MEDS: THIAMINE HCL 100 MG TABLET PO SCH (10:01)
[2017-04-17] MEDS: LOSARTAN POTASSIUM 50 MG TABLET PO SCH (10:02)
[2017-04-17] MEDS: SITAGLIPTIN PHOSPHATE 50 MG TABLET PO SCH ×2 (10:02→17:22)
[2017-04-17] MEDS: CALCIUM CARBONATE 250 MG/VITAMIN D3 125 UNIT TABLET PO SCH (10:02)
[2017-04-17] MEDS: LORATADINE 10 MG TABLET PO SCH (10:02)
[2017-04-17] MEDS: NICOTINE 7 MG/24 HR PATCH.TD24 TD SCH (10:03)
[2017-04-17] MEDS: LACTULOSE SYRUP 20 GM/30 ML UDCUP PO SCH ×2 (10:03→21:23)
[2017-04-17] MEDS: BUTALB/ACETAMINOPHEN/CAFFEINE 1 TAB EACH PO PRN ×3 (10:14→21:32)
--- NOTE | 2017-04-17 12:51 | PDOC PROGRESS REPORT ---
Subjective Progress Note for:: 04/17/17 Subjective:: Awaiting placement for patient no new complaints Physical Exam Vital Signs: Temp Pulse Resp BP Pulse Ox 98.2 F 71 12 135/66 H 100 04/17/17 07:56 04/17/17 07:56 04/17/17 07:56 04/17/17 07:56 04/17/17 07:56 Intake & Output 04/16/17 04/17/17 04/18/17 06:59 06:59 06:59 Intake Total 1843 1095 Output Total 3900 1575 Balance -1356 -823 General appearance: PRESENT: no acute distress, well-developed, well-nourished Head exam: PRESENT: atraumatic, normocephalic Eye exam: PRESENT: conjunctiva pink, EOMI, PERRLA. ABSENT: scleral icterus Ear exam: PRESENT: normal external ear exam Mouth exam: PRESENT: moist, tongue midline Neck exam: PRESENT: full ROM. ABSENT: carotid bruit, JVD, lymphadenopathy, thyromegaly Cardiovascular exam: PRESENT: RRR. ABSENT: diastolic murmur, rubs, systolic murmur Pulses: PRESENT: normal dorsalis pedis pul, +2 pedal pulses bilateral Vascular exam: PRESENT: normal capillary refill GI/Abdominal exam: PRESENT: normal bowel sounds, soft. ABSENT: distended, guarding, mass, organolmegaly, rebound, tenderness Rectal exam: PRESENT: deferred Neurological exam: PRESENT: alert, awake, oriented to person, oriented to place , oriented to time, oriented to situation, CN II-XII grossly intact. ABSENT: motor sensory deficit Psychiatric exam: PRESENT: appropriate affect, normal mood. ABSENT: homicidal ideation, suicidal ideation Skin exam: PRESENT: dry, intact, warm. ABSENT: cyanosis, rash Results Laboratory Results: 04/13/17 04:53 04/14/17 17:55 Assessment & Plan - Diagnosis (1) Weakness Is this a current diagnosis for this admission?: Yes (2) Elevated liver enzymes Is this a current diagnosis for this admission?: Yes (3) Hypothyroid Qualifiers: Hypothyroidism type: unspecified Qualified Code(s): E03.9 - Hypothyroidism , unspecified Is this a current diagnosis for this admission?: Yes (4) Type 2 diabetes mellitus Qualifiers: Diabetes mellitus complication status: with unspecified complications Diabetes mellitus long term care pharmacist insulin use: without residential use Qualified Code( s): E11.8 - Type 2 diabetes mellitus with unspecified complications Is this a current diagnosis for this admission?: Yes
[2017-04-17] MEDS: MONTELUKAST SODIUM 10 MG TABLET PO SCH (21:32)
[2017-04-17] MEDS: AMITRIPTYLINE HCL 75 MG TABLET PO SCH (21:32)
[2017-04-18] MEDS: ONDANSETRON 4 MG TAB.RAPDIS PO PRN ×2 (00:41→17:40)
[2017-04-18] MEDS: LANSOPRAZOLE 30 MG TAB.RAP.DR PO SCH (05:05)
[2017-04-18] MEDS: LEVOTHYROXINE SODIUM 0.05 MG TABLET PO SCH (06:20)
[2017-04-18] MEDS: GABAPENTIN 300 MG CAPSULE PO SCH ×3 (06:20→21:28)
[2017-04-18] MEDS: ATORVASTATIN CALCIUM 10 MG TABLET PO SCH (09:33)
[2017-04-18] MEDS: SITAGLIPTIN PHOSPHATE 50 MG TABLET PO SCH ×2 (09:33→17:36)
[2017-04-18] MEDS: CALCIUM CARBONATE 250 MG/VITAMIN D3 125 UNIT TABLET PO SCH (09:36)
[2017-04-18] MEDS: THIAMINE HCL 100 MG TABLET PO SCH (09:37)
[2017-04-18] MEDS: LOSARTAN POTASSIUM 50 MG TABLET PO SCH (09:37)
[2017-04-18] MEDS: LORATADINE 10 MG TABLET PO SCH (09:38)
[2017-04-18] MEDS: CYCLOBENZAPRINE HCL 10 MG TABLET PO PRN ×2 (09:38→17:37)
[2017-04-18] MEDS: METFORMIN HCL 500 MG TABLET PO SCH ×2 (09:39→17:35)
[2017-04-18] MEDS: FLUTICASONE NASAL SPRAY 50 MCG/SPRY 120 SPRAY/16 GM NASL SCH (09:39)
[2017-04-18] MEDS: OLOPATADINE HCL 0.1% OPH SOLN 5 ML OU SCH ×2 (09:40→17:39)
[2017-04-18] MEDS: NICOTINE 7 MG/24 HR PATCH.TD24 TD SCH (09:40)
[2017-04-18] MEDS: LACTULOSE SYRUP 20 GM/30 ML UDCUP PO SCH ×2 (09:44→21:21)
[2017-04-18] MEDS: BUTALB/ACETAMINOPHEN/CAFFEINE 1 TAB EACH PO PRN ×2 (17:37→21:29)
[2017-04-18] MEDS: MONTELUKAST SODIUM 10 MG TABLET PO SCH (21:28)
[2017-04-18] MEDS: AMITRIPTYLINE HCL 75 MG TABLET PO SCH (21:28)
--- NOTE | 2017-04-18 21:46 | PDOC TRANSFER SUMMARY ---
General - Admit/Disc Date/PCP Admission Date/Primary Care Provider: 04/13/17 01:47 ARSH WOODWARD MD Discharge Date: 04/18/17 - Discharge Diagnosis (1) Weakness Is this a current diagnosis for this admission?: Yes (2) Elevated liver enzymes Is this a current diagnosis for this admission?: Yes (3) Hypothyroid Is this a current diagnosis for this admission?: Yes (4) Type 2 diabetes mellitus Is this a current diagnosis for this admission?: Yes - Additional Information Discharge Diet: Diabetic Home Medications: Albuterol Sulfate [Proair HFA Inhalation Aerosol 8.5 gm MDI] 1 puff IH Q4HP PRN 04/13/17 Amitriptyline HCl [Elavil 75 mg Tablet] 75 mg PO QHS 04/13/17 Butalb/Acetaminophen/Caffeine [Fioricet (50-325-40 mg) Tablet] 1 tab PO Q4HP PRN 04/13/17 Calcium Carbonate/Vitamin D3 [Calcium 500 + Vit D Caplet] 1 each PO DAILY Ergocalciferol (Vitamin D2) [Vitamin D2] 50,000 unit PO VICENTE@1000 04/13/17 Fexofenadine HCl [Anaya] 180 mg PO DAILY 04/13/17 Fluticasone Propionate [Flonase Nasal Aldie 50 Mcg/Aldie 16 gm] 1 spray NASL DAILY 04/13/17 Gabapentin [Neurontin 300 mg Capsule] 300 mg PO Q8 04/13/17 Lactulose [Constulose 10 gm/15 mL Oral Solution] 30 ml PO BID 04/13/17 Levothyroxine Sodium [Synthroid] 50 mcg PO DAILY@0600 04/13/17 Losartan Potassium [Cozaar] 50 mg PO DAILY 04/13/17 Montelukast Sodium [Singulair] 10 mg PO QHS 04/13/17 Nicotine [Nicoderm 7 mg/24 Hr Transdermal Patch] 1 patch TD DAILY 04/13/17 Olopatadine HCl [Patanol 0.1% Oph Soln 5 ml] 1 drop OU BID 04/13/17 Ondansetron HCl [Zofran 4 mg Tablet] 1 tab PO Q8HP PRN 04/13/17 Pantoprazole Sodium [Protonix] 40 mg PO DAILY 04/13/17 Pravastatin Sodium [Pravachol] 20 mg PO DAILY 04/13/17 Sitagliptin Phos/Metformin HCl [Janumet 50-1,000 mg Tablet] 1 each PO BID Thiamine HCl [Vitamin B-1] 50 mg PO DAILY 04/13/17 History of Present Illness Admission Date/PCP: 04/13/17 01:47 ARSH WOODWARD MD History of Present Illness: STU CLARK is a 51 year old female, she was transfer to [facility] because AIDP was suspected,, she was extensively evaluated from neurology standpoint at [facility] she underwent EMG/NCS, a repeat lumbar puncture was done at [facility] before she was transferred to [facility] she had lumbar puncture done in this hospital 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 The diffuse weakness could not be explained no etiology was found she also had MRI of the cervical spine intraoperatively, before she was discharged she had MRI of the brain and lumbar spine. EMG/NCS showed no evidence of large fiber polyneuropathy or myopathy. She was transferred back from [facility] this morning to this hospital. Hospital Course Hospital Course: Patient was admitted from [facility] for management of weakness of the extremities. 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.Before she was transferred to [facility] she presented to my office with weakness was progressive she was brought to the office for evaluation, lumbar puncture was done showed no cells in the CSF and CSF protein was elevated at 147 this is consistent with the findings for Guillain-Lassiter syndrome she needed to have EMG /NCS to confirm Guillain-Lassiter syndrome ,she was then transferred to [facility] where she was evaluated extensively EMG/NCS was done, EEG ,MRI brain and cervical spine was done ,she has MRI Brain and lumbar spine in [facility] ,they were all negative. She was transferred back to us the plan is to transfer to a long-term for rehabilitation and then discharge home Physical Exam Vital Signs: Temp Pulse Resp BP Pulse Ox 98.4 F 79 16 116/69 97 04/18/17 16:34 04/18/17 19:00 04/18/17 16:34 04/18/17 16:34 04/18/17 16:34 Intake & Output 04/17/17 04/18/17 04/19/17 06:59 06:59 06:59 Intake Total 1095 1800 670 Output Total 2628 2085 [id number] -855 -3424 700 General appearance: PRESENT: no acute distress, well-developed, well-nourished Head exam: PRESENT: atraumatic, normocephalic Eye exam: PRESENT: conjunctiva pink, EOMI, PERRLA. ABSENT: scleral icterus Ear exam: PRESENT: normal external ear exam Mouth exam: PRESENT: moist, tongue midline Respiratory exam: PRESENT: clear to auscultation katherine Cardiovascular exam: PRESENT: RRR, +S1, +S2 Pulses: PRESENT: normal dorsalis pedis pul Vascular exam: PRESENT: normal capillary refill GI/Abdominal exam: PRESENT: normal bowel sounds, soft Rectal exam: PRESENT: deferred Extremities exam: PRESENT: full ROM Neurological exam: PRESENT: alert, awake, oriented to person, oriented to place , oriented to time, oriented to situation, reflexes normal, CN II-XII grossly intact, motor sensory deficit - power 3/5 of the extremities Psychiatric exam: PRESENT: appropriate affect, normal mood Skin exam: PRESENT: dry, intact, warm. ABSENT: cyanosis, rash Results Laboratory Results: 04/13/17 04:53 04/14/17 17:55
[2017-04-19] MEDS: GABAPENTIN 300 MG CAPSULE PO SCH ×3 (05:50→21:55)
[2017-04-19] MEDS: LEVOTHYROXINE SODIUM 0.05 MG TABLET PO SCH (05:51)
[2017-04-19] MEDS: LANSOPRAZOLE 30 MG TAB.RAP.DR PO SCH (05:51)
[2017-04-19] MEDS: LOSARTAN POTASSIUM 50 MG TABLET PO SCH (09:38)
[2017-04-19] MEDS: METFORMIN HCL 500 MG TABLET PO SCH ×2 (09:40→17:22)
[2017-04-19] MEDS: THIAMINE HCL 100 MG TABLET PO SCH (09:40)
[2017-04-19] MEDS: LACTULOSE SYRUP 20 GM/30 ML UDCUP PO SCH ×2 (09:41→21:57)
[2017-04-19] MEDS: CALCIUM CARBONATE 250 MG/VITAMIN D3 125 UNIT TABLET PO SCH (09:41)
[2017-04-19] MEDS: SITAGLIPTIN PHOSPHATE 50 MG TABLET PO SCH ×2 (09:42→17:22)
[2017-04-19] MEDS: LORATADINE 10 MG TABLET PO SCH (09:42)
[2017-04-19] MEDS: FLUTICASONE NASAL SPRAY 50 MCG/SPRY 120 SPRAY/16 GM NASL SCH (09:42)
[2017-04-19] MEDS: NICOTINE 7 MG/24 HR PATCH.TD24 TD SCH (09:42)
[2017-04-19] MEDS: OLOPATADINE HCL 0.1% OPH SOLN 5 ML OU SCH ×2 (09:43→17:22)
[2017-04-19] MEDS: ATORVASTATIN CALCIUM 10 MG TABLET PO SCH (09:45)
[2017-04-19] MEDS: ONDANSETRON 4 MG TAB.RAPDIS PO PRN (14:04)
[2017-04-19] MEDS: BUTALB/ACETAMINOPHEN/CAFFEINE 1 TAB EACH PO PRN ×2 (17:25→21:57)
[2017-04-19] MEDS: MONTELUKAST SODIUM 10 MG TABLET PO SCH (21:55)
[2017-04-19] MEDS: AMITRIPTYLINE HCL 75 MG TABLET PO SCH (21:55)
[2017-04-19] MEDS: CYCLOBENZAPRINE HCL 10 MG TABLET PO PRN (21:56)
[2017-04-20] MEDS: CYCLOBENZAPRINE HCL 10 MG TABLET PO PRN (06:47)
[2017-04-20] MEDS: GABAPENTIN 300 MG CAPSULE PO SCH ×2 (06:47→14:51)
[2017-04-20] MEDS: BUTALB/ACETAMINOPHEN/CAFFEINE 1 TAB EACH PO PRN ×2 (06:47→14:55)
[2017-04-20] MEDS: ONDANSETRON 4 MG TAB.RAPDIS PO PRN (06:47)
[2017-04-20] MEDS: LEVOTHYROXINE SODIUM 0.05 MG TABLET PO SCH (06:47)
[2017-04-20] MEDS: LANSOPRAZOLE 30 MG TAB.RAP.DR PO SCH (06:48)
[2017-04-20] MEDS: METFORMIN HCL 500 MG TABLET PO SCH (10:19)
[2017-04-20] MEDS: NICOTINE 7 MG/24 HR PATCH.TD24 TD SCH (10:19)
[2017-04-20] MEDS: THIAMINE HCL 100 MG TABLET PO SCH (10:19)
[2017-04-20] MEDS: LOSARTAN POTASSIUM 50 MG TABLET PO SCH (10:19)
[2017-04-20] MEDS: SITAGLIPTIN PHOSPHATE 50 MG TABLET PO SCH (10:19)
[2017-04-20] MEDS: FLUTICASONE NASAL SPRAY 50 MCG/SPRY 120 SPRAY/16 GM NASL SCH (10:20)
[2017-04-20] MEDS: LORATADINE 10 MG TABLET PO SCH (10:20)
[2017-04-20] MEDS: ATORVASTATIN CALCIUM 10 MG TABLET PO SCH (10:20)
[2017-04-20] MEDS: OLOPATADINE HCL 0.1% OPH SOLN 5 ML OU SCH (10:20)
[2017-04-20] MEDS: CALCIUM CARBONATE 250 MG/VITAMIN D3 125 UNIT TABLET PO SCH (10:20)
[2017-04-20] MEDS: LACTULOSE SYRUP 20 GM/30 ML UDCUP PO SCH (10:21)
[2017-04-20 12:53] VITALS: BP 118/66
== END 2017-04-20 17:00 | DRG 948 ==
LOC: 4S 01:47 → UNDOADMIN 02:22 → 4S 02:22
PROVIDERS: ADMIT Internal Medicine; ATTEND Internal Medicine
DX: R53.1 Weakness (principal); R74.8 Abnormal levels of other serum enzymes; E03.9 Hypothyroidism, unspecified; E11.9 Type 2 diabetes mellitus without complications; F32.9 Major depressive disorder, single episode, unspecified; I10 Essential (primary) hypertension; M19.90 Unspecified osteoarthritis, unspecified site; Z88.6 Allergy status to analgesic agent; Z79.899 Other long term (current) drug therapy; Z90.49 Acquired absence of other specified parts of digestive tract; Z90.710 Acquired absence of both cervix and uterus; Z79.84 Long term (current) use of oral hypoglycemic drugs
CPT/HCPCS: 36415; 80048; 80053; 80076; 82140; 82962; 83036; 85027; J3490; S0119

== ENCOUNTER → 2017-08-31 | Outpatient (CLI) | payer OTHER ==
--- NOTE | 2017-08-31 11:30 | RADIOLOGY REPORT (SQ) ---
EXAM DESCRIPTION: U/S RETROPERITON (RENAL/AORTA) COMPLETED DATE/TIME: 08/31/2017 10:26 am REASON FOR STUDY: CKD III (N18..3) N18.3 CHRONIC KIDNEY DISEASE, STAGE 3 (MODERATE) COMPARISON: None. TECHNIQUE: Dynamic and static grayscale images acquired of the kidneys and bladder and recorded on P ACS. Additional selected color Doppler and spectral images recorded. LIMITATIONS: Limited visualization. FINDINGS: RIGHT KIDNEY: 9.7 cm in length. No gross mass, stones or obstruction. LEFT KIDNEY: 9.3 cm in length. No gross mass, stones or obstruction. BLADDER: Jets not identified, however no mass or stones. Normal bladder otherwise. OTHER FINDINGS: No other significant finding. IMPRESSION: Limited normal study. TECHNICAL DOCUMENTATION: JOB ID: [id number] [employer]- All Rights Reserved
== END ==
LOC: RAD 09:49
PROVIDERS: ATTEND Internal Medicine
DX: N18.3 Chronic kidney disease, stage 3 (moderate) (principal)
CPT/HCPCS: 76770

== ENCOUNTER → 2018-05-31 | Outpatient (CLI) | payer OTHER ==
--- NOTE | 2018-05-31 10:56 | WOMENS IMAGING REPORT ---
EXAM DESCRIPTION: BILAT SCREENING MAMMO W/CAD COMPLETED DATE/TIME: 05/31/2018 10:29 am REASON FOR STUDY: BILATERAL SCREENING MAMMO /Z12.31 Z12.31 ENCNTR SCREEN MAMMOGRAM FOR MALIGNANT NE OPLASM OF ARSEN COMPARISON: [id number] TECHNIQUE: Standard craniocaudal and mediolateral oblique views of each breast recorded using [employer] acquisition. LIMITATIONS: None. FINDINGS: No masses, calcifications or architectural distortion. No areas of suspicion. Read with the assistance of CAD. .[facility] - R2 [employer] Version 1.3 .[facility] Imaging - R2 Cenova Version 1.3 .[facility] - R2 Cenova Version 2.4 .[facility] - R2 Cenova Version 2.4 .[facility] - R2 [employer] Instructor Version 9.2 IMPRESSION: NORMAL MAMMOGRAM. BIRADS 1. BREAST DENSITY: c. The breasts are heterogeneously dense, which may obscure small masses. BIRAD: 1 NEGATIVE RECOMMENDATION: ROUTINE SCREENING COMMENT: The patient has been notified of the results by letter per SA requirements. Additional no tification policies are in place for contacting patient with suspicious or incomplete findings. Quality ID #[id number]: The [employer] recommends an annual screening mammogram for women aged 40 years or over. This facility utilizes a reminder system to ensure that all patients receive reminder letters, and/or direct phone calls for appointments. This includes reminders for routine scr eening mammograms, diagnostic mammograms, or other Breast Imaging Interventions when appropriate. Th is patient will be placed in the appropriate reminder system. The [employer] (ACR) has developed recommendations for screening MRI of the breast s in certain patient populations, to be used in conjunction with mammography. Breast MRI surveillanc e may be appropriate for women with more than 20% lifetime risk of developing breast cancer as deter mined by genetic testing, significant family history of the disease, or history of mantle radiation f or Hodgkins Disease. ACR Practice Guidelines 2008. TECHNICAL DOCUMENTATION: FINDING NUMBER: (1) ASSESSMENT: (1) JOB ID: [id number] [email or web address]- All Rights Reserved Reading location - IP/workstation name: [facility]
== END ==
LOC: WI 09:52
PROVIDERS: ATTEND Internal Medicine
DX: Z12.31 Encounter for screening mammogram for malignant neoplasm of breast (principal)
CPT/HCPCS: 77067

== ENCOUNTER → 2018-12-26 | Outpatient (CLI) | payer OTHER ==
--- NOTE | 2018-12-26 14:59 | RADIOLOGY REPORT (SQ) ---
EXAM DESCRIPTION: CT ABD/PELVIS WITH IV ONLY COMPLETED DATE/TIME: 12/26/2018 1:24 pm REASON FOR STUDY: R63.4 ABNORMAL WEIGHT LOSS R63.4 ABNORMAL WEIGHT LOSS COMPARISON: 04/18/2015. TECHNIQUE: CT scan of the abdomen and pelvis performed using helical scanning technique with dynamic intravenous contrast injection. No oral contrast. Images reviewed with lung, soft tissue, and bone windows. Reconstructed coronal and sagittal MPR images reviewed. Delayed images for evaluation of the urinary system also acquired. All images stored on PACS. All CT scanners at this facility use dose modulation, iterative reconstruction, and/or weight based d osing when appropriate to reduce radiation dose to as low as reasonably achievable (ALARA). [facility]: Dose Right [facility]: CareDose [facility]: Dose Right [facility]: Teradose 4D [facility]: [place] CONTRAST TYPE AND DOSE: contrast/concentration: Isovue 350.00 mg/ml; Total Contrast Delivered: 73.0 ml; Total Saline Delivered: 64.8 ml RENAL FUNCTION: Creatinine 0.9. RADIATION DOSE: CT Rad equipment meets quality standard of care and radiation dose reduction techniq ues were employed. CTDIvol: 3.4 - 4.0 mGy. DLP: 354 mGy-cm.. LIMITATIONS: None. FINDINGS: LOWER CHEST: No significant findings. No nodules or infiltrates. LIVER: Normal size. No masses. No dilated ducts. SPLEEN: Normal size. No focal lesions. PANCREAS: No masses. Diffuse coarse calcifications throughout the pancreas. No adjacent inflammation or peripancreatic fluid collections. Pancreatic duct not dilated. GALLBLADDER: Surgically absent. ADRENAL GLANDS: No significant masses or asymmetry. RIGHT KIDNEY AND URETER: No solid masses. No significant calcifications. No hydronephrosis or hyd roureter. LEFT KIDNEY AND URETER: No solid masses. No significant calcifications. No hydronephrosis or hydr oureter. AORTA AND VESSELS: No aneurysm. No dissection. Renal arteries, SMA, celiac without stenosis. RETROPERITONEUM: No retroperitoneal adenopathy, hemorrhage or masses. BOWEL AND PERITONEAL CAVITY: No masses or inflammatory changes. No free fluid or peritoneal masses. APPENDIX: Surgically absent. PELVIS: No mass. No free fluid. Normal bladder. ABDOMINAL WALL: No masses. No hernias. BONES: No significant or acute findings. OTHER: No other significant finding. IMPRESSION: DIFFUSE COARSE CALCIFICATIONS THROUGHOUT PANCREAS CONSISTENT WITH CHRONIC PANCREATITIS. NO OTHER SIGNIFICANT OR ACUTE FINDING IN THE ABDOMEN OR PELVIS ON CT SCAN WITH IV CONTRAST. TECHNICAL DOCUMENTATION: JOB ID: [id number] Quality ID # [id number]: Final reports with documentation of one or more dose reduction techniques (e.g., Au tomated exposure control, adjustment of the mA and/or kV according to patient size, use of iterative reconstruction technique) 2010 [employer]- All Rights Reserved Reading location - IP/workstation name: [email or web address]
== END ==
LOC: RAD 12:34
PROVIDERS: ATTEND Internal Medicine
DX: K86.1 Other chronic pancreatitis (principal); R63.4 Abnormal weight loss
CPT/HCPCS: 74177; 82565

== ENCOUNTER → 2019-06-12 | Outpatient (CLI) | payer OTHER ==
--- NOTE | 2019-06-12 12:33 | RADIOLOGY REPORT (SQ) ---
EXAM DESCRIPTION: SHOULDER LEFT 2 OR MORE VIEWS COMPLETED DATE/TIME: 06/12/2019 12:23 pm REASON FOR STUDY: PAIN IN LEFT SHOULDER Z12.31 ENCNTR SCREEN MAMMOGRAM FOR MALIGNANT NEOPLASM OF BR E COMPARISON: None. NUMBER OF VIEWS: Three views. TECHNIQUE: Internal rotation, external rotation, and Y view images acquired of the left shoulder. LIMITATIONS: None. FINDINGS: MINERALIZATION: Normal. BONES: No acute fracture. No worrisome bone lesions. JOINTS: No dislocation. Minimal acromioclavicular osteophytes. VISUALIZED LUNGS AND RIBS: No pneumothorax. No rib fracture. SOFT TISSUES: No radiopaque foreign body. OTHER: No other significant finding. IMPRESSION: NEGATIVE STUDY OF THE LEFT SHOULDER. NO RADIOGRAPHIC EVIDENCE OF ACUTE INJURY. TECHNICAL DOCUMENTATION: JOB ID: [id number] [employer]- All Rights Reserved Reading location - IP/workstation name: [email or web address]
--- NOTE | 2019-06-12 13:24 | WOMENS IMAGING REPORT ---
EXAM DESCRIPTION: BILAT SCREENING MAMMO W/CAD COMPLETED DATE/TIME: 06/12/2019 11:50 am REASON FOR STUDY: Z12.31 SCREENING MAMMO Z12.31 ENCNTR SCREEN MAMMOGRAM FOR MALIGNANT NEOPLASM OF B RE COMPARISON: [id number] EXAM PARAMETERS: Standard craniocaudal and mediolateral oblique views of each breast recorded using digital acquisition. Read with the assistance of CAD. .[facility] - [employer] Finishing Area Operator Version 9.2 LIMITATIONS: None. FINDINGS: No suspicious masses, suspicious calcifications or architectural distortion. No areas of c oncern. IMPRESSION: Negative MAMMOGRAM. BIRADS 1 BREAST DENSITY: c. The breasts are heterogeneously dense, which may obscure small masses. BIRAD: ASSESSMENT: 1 NEGATIVE RECOMMENDATION: ROUTINE SCREENING COMMENT: The patient has been notified of the results by letter per MQSA requirements. Additional no tification policies are in place for contacting patient with suspicious or incomplete findings. Quality ID #[id number]: The [employer] recommends an annual screening mammogram for women aged 40 years or over. This facility utilizes a reminder system to ensure that all patients receive reminder letters, and/or direct phone calls for appointments. This includes reminders for routine scr eening mammograms, diagnostic mammograms, or other Breast Imaging Interventions when appropriate. Th is patient will be placed in the appropriate reminder system. TECHNICAL DOCUMENTATION: FINDING NUMBER: (1) ASSESSMENT: (1) JOB ID: [id number] [employer]- All Rights Reserved Reading location - IP/workstation name: [email or web address]
== END ==
LOC: RAD 11:20
PROVIDERS: ATTEND Internal Medicine
DX: Z12.31 Encounter for screening mammogram for malignant neoplasm of breast (principal); M25.512 Pain in left shoulder
CPT/HCPCS: 77067

== ENCOUNTER → 2020-06-25 | Outpatient (CLI) | payer OTHER ==
--- NOTE | 2020-06-26 15:19 | WOMENS IMAGING REPORT ---
EXAM DESCRIPTION: 3D SCREENING MAMMO BILAT IMAGES COMPLETED DATE/TIME: 06/25/2020 11:16 am REASON FOR STUDY: Z12.31 ENCNTR SCREEN MAMMOGRAM FOR MALIGNANT NEOPLASM OF BREAST Z12.31 ENCNTR SCR EEN MAMMOGRAM FOR MALIGNANT NEOPLASM OF ARSEN COMPARISON: Multiple since 2010 EXAM PARAMETERS: Views: Standard craniocaudal and mediolateral oblique views of each breast recorded using digital acquisition and breast tomosynthesis. Read with the assistance of CAD. .[facility] - [employer] Associate Version 9.2 LIMITATIONS: None. FINDINGS: No suspicious masses, suspicious calcifications or architectural distortion. No areas of c oncern. IMPRESSION: NEGATIVE MAMMOGRAM. BIRADS 1. BREAST DENSITY: d. The breasts are extremely dense, which lowers the sensitivity of mammography. BIRAD: ASSESSMENT: 1 NEGATIVE RECOMMENDATION: ROUTINE SCREENING Please continue yearly bilateral screening mammography/tomosynthesis in June 2021 COMMENT: The patient has been notified of the results by letter per SA requirements. Additional no tification policies are in place for contacting patient with suspicious or incomplete findings. Quality ID #[id number]: The [employer] recommends an annual screening mammogram for women aged 40 years or over. This facility utilizes a reminder system to ensure that all patients receive reminder letters, and/or direct phone calls for appointments. This includes reminders for routine scr eening mammograms, diagnostic mammograms, or other Breast Imaging Interventions when appropriate. Th is patient will be placed in the appropriate reminder system. TECHNICAL DOCUMENTATION: FINDING NUMBER: (1) ASSESSMENT: (1) JOB ID: [id number] [employer]- All Rights Reserved Reading location - IP/workstation name: [email or web address]
== END ==
LOC: WI 10:55
PROVIDERS: ATTEND Internal Medicine
DX: Z12.31 Encounter for screening mammogram for malignant neoplasm of breast (principal)
CPT/HCPCS: 77063; 77067